=== PATIENT | male | born 1975 | race Caucasian/White ===

== ENCOUNTER 2020-12-02 20:20 | Emergency (ER) | payer OTHER, BC ==
[~2020-12-02] VITALS: Ht 185.4 cm; Wt 108.9 kg
[2020-12-02] MEDS ORDERED: MELOXICAM15 MG PO (20:38)
[2020-12-02] MEDS ORDERED: HYDROCODON-ACE1 EA10 PO (21:00)
[2020-12-02] MEDS ORDERED: CRUTCH1 EACH MISC (21:04)
== END 2020-12-02 21:24 | disposition home or self-care (01) ==
LOC: ED 20:20
DX: S83.91XA Sprain of unspecified site of right knee, initial encounter (principal); W00.0XXA Fall on same level due to ice and snow, initial encounter; G47.30 Sleep apnea, unspecified; Z79.899 Other long term (current) drug therapy
CPT/HCPCS: 73560; 99283-25